=== PATIENT | female | born 1975 | race Caucasian/White ===

== ENCOUNTER 2022-11-28 11:32 | Emergency (ER) | payer BC, SELFPAY ==
--- NOTE | 2022-11-28 11:35 | ED.FALL ---
HPI - Fall General Chief Complaint: Fall Stated Complaint: fall; dizzy,head injury,headache Time Seen by Provider: 11/28/22 11:35 Source: patient Mode of arrival: ambulatory Limitations: no limitations History of Present Illness HPI Narrative: Patient is a 39-year-old female that presents with headache and dizziness upon standing after fall this morning. Patient slipped getting out of the shower and hit head on side of tub. Denies any LOC. States head is now only tender to touch. To take Tylenol but is still having mild headache. Denies constant dizziness, just had 1 episode when getting out of the car. Denies any vision changes, nausea, vomiting, photophobia, numbness or tingling to his extremities. Related Data Home Medications Medication Instructions Recorded Confirmed aspirin 81 mg capsule 81 mg PO DAILY 11/28/22 11/28/22 atorvastatin 80 mg tablet 80 mg DAILY 11/28/22 11/28/22 ezetimibe 10 mg tablet 10 mg DAILY 11/28/22 11/28/22 metoprolol succinate 100 mg 100 mg PO DAILY 11/28/22 11/28/22 tablet,extended release 24 hr pioglitazone 15 mg tablet 15 mg DAILY 11/28/22 11/28/22 Allergies Allergy/AdvReac Type Severity Reaction Status Date / Time hydrocodone Allergy Mild Unknown Verified 11/28/22 11:50 codeine Allergy Unknown Anaphylactic Verified 11/28/22 11:50 Shock Review of Systems Review of Systems: All systems reviewed & are unremarkable except as noted in HPI and below Constitutional: Constitutional: Denies body ache(s), Denies chills, Denies fatigue, Denies fever(s), Reports headache(s), Denies malaise and Denies weakness Eyes: Eyes: Denies blurry vision, Denies irritation, Denies loss of vision and Denies photophobia ENT: Reports dizziness (Upon standing), Denies otalgia, Reports headache(s), Denies nasal discharge, Denies sinus pain and Denies sore throat Cardiovascular: Cardiovascular: Denies chest pain, Denies irregular heart rhythm and Denies dyspnea Respiratory: Respiratory: Denies dyspnea Gastrointestinal: Gastrointestinal: Denies abdominal pain, Denies melena, Denies hematochezia, Denies diarrhea, Denies nausea and Denies vomiting Musculoskeletal: Musculoskeletal: Denies back pain, Denies myalgias and Denies arthralgias Integumentary/Breasts: Skin/Breast: Denies pruritus and Denies rash Neurologic: Reports headache(s), Denies loss of vision and Denies weakness Psychiatric: Psychiatric: Reports no additional psychiatric complaints Endocrine: Endocrine: Denies fatigue PMFSH Comments At time of signature, agree with nursing past medical, surgical, social and family history. There is no relevant family history pertinent to the presenting complaint. Exam Const: General: cooperative, healthy appearing, comfortable, no acute distress and well nourished Nutritional Appearance: well nourished Orientation/consciousness: patient oriented x3 Limitations: no limitations HENMT: Head: normal to inspection, normocephalic and atraumatic Head images: 1. Tenderness and mild hematoma present. No skull deformity Ears: hearing grossly normal bilaterally and external ears normal Face/Nose/Sinus: Normal external nose present, normal facial exam and face symmetric Face and sinus: normal facial exam and face symmetric Mouth: Yes lip normal Eyes: General: appearance normal, both eyes and all related structures Alignment and Position: alignment normal and position normal Periorbital: periorbital findings normal Eyelids: eyelids normal Pupils: Equal, round and reactive pupils present EOM: EOMs intact bilaterally Neck: Neck: normal visual inspection, full ROM and supple Chest: Chest palpation & inspection: normal inspection of the chest Resp: Effort & Inspection: normal respiratory effort and able to speak in complete sentences Auscultation: clear to auscultation bilaterally Cardio: Rate: regular rate Rhythm: regular rhythm Heart sounds: S1 normal heart sound present and S2 normal heart soun
[2022-11-28 11:44] VITALS: BP 137/88; PULSE 78; RESP 16; TEMP 36.3; O2SAT 99
== END 2022-11-28 12:02 | disposition home or self-care (01) ==
PROVIDERS: Emergency Provider Nurse Practitioner Family; PCP Internal Medicine
DX: S06.0X0A Concussion without loss of consciousness, initial encounter (principal); W19.XXXA Unspecified fall, initial encounter; Z79.82 Long term (current) use of aspirin
CPT/HCPCS: 99213; G0463